=== PATIENT | male | born 1970 | race African-American/Black ===

== ENCOUNTER 2019-08-12 21:10 | Inpatient (IN) | payer OTHER ==
[2019-08-12 21:17] VITALS: BMI 23.6
--- NOTE | 2019-08-12 21:29 | PDOC ---
Rapid Medical Evaluation Chief Complaint: Lightheaded Time Seen by Provider: 08/12/19 21:24 Medical Evaluation: Allergies Allergy/AdvReac Type Severity Reaction Status Date / Time No Known Allergies Allergy Verified 08/12/19 21:13 Vital Signs Temp Pulse Resp BP Pulse Ox 98.8 F 93 H 18 176/95 H 97 08/12/19 21:13 08/12/19 21:13 08/12/19 21:13 08/12/19 21:13 08/12/19 21:13 08/12/19 21:26 I have performed a brief in-person evaluation of this patient. The patient presents with a chief complaint of: h/o HTN present with complains of 3 days h/o dizziness, left arm and upper chest pain worsening today with intermittent SOB. Denies N/V, sweats, LOC. report he feels disoriented. pt uses PCP but report did not have PCP today Pertinent physical exam findings: RRR. lungs CTAB I have ordered the following: CBC, CMP, cardiac profile. CXR, EKG The patient will proceed to the ED for further evaluation. Discharge Disposition - Diagnosis Dizziness - Discharge Dispostion Condition at time of disposition: Stable - Referrals - Patient Instructions - Post Discharge Activity
[2019-08-12 21:43] LABS: BASO % 0.6 % (0-2.0); EOS % 1.2 % (0-4.5); HEMATOCRIT 39.3 % (35.4-49); HEMOGLOBIN 13.1 GM/dL (11.7-16.9); MCH 31.5 pg (25.7-33.7); MCHC 33.4 g/dl (32.0-35.9); MEAN CELL VOLUME 94.5 fl (80-96); MEAN PLT VOLUME 7.3 fl (7.5-11.1); MONO % 8.6 % (3.8-10.2); NEUT % 54.6 % (42.8-82.8); PLATELET COUNT 307 K/MM3 (134-434); RBC 4.16 M/mm3 (4.00-5.60); RDW 14.6 % (11.9-15.9); WHITE BLOOD COUNT 6.6 K/mm3 (4.0-10.0)
[2019-08-12 21:58] LABS: URINE APPEARANCE CLEAR; URINE BILIRUBIN NEGATIVE (NEGATIVE); URINE COLOR YELLOW; URINE GLUCOSE (UA) NEGATIVE (NEGATIVE); URINE KETONE TRACE (NEGATIVE); URINE LEUK ESTERASE NEGATIVE (NEGATIVE); URINE NITRITE NEGATIVE (NEGATIVE); URINE PROTEIN TRACE (NEGATIVE)
[2019-08-12 22:10] LABS: COCAINE, UR NEGATIVE ng/ml (CUTOFF=300); METHADONE, UR NEGATIVE ng/ml (CUTOFF=300); OPIATES, URI NEGATIVE ng/ml (CUTOFF=300); URINE AMPHETAMINES NEGATIVE ng/ml (CUTOFF=500); URINE BARBITURATES NEGATIVE ng/ml (CUTOFF=200); URINE BENZODIAZEPINES NEGATIVE ng/ml (CUTOFF=200)
[2019-08-12 22:11] LABS: PHENCYCLIDINE,URINE POSITIVE ng/ml (CUTOFF=25)
[2019-08-12 22:20] LABS: ALBUMIN 4.1 g/dl (3.4-5.0); ALK PHOS 87 U/L (45-117); ANION GAP 8 MMOL/L (8-16); BILIRUBIN,TOTAL 0.3 mg/dL (0.2-1); BLOOD UREA NITROGEN 12.1 mg/dL (7-18); CALCIUM 9.1 mg/dL (8.5-10.1); CHLORIDE 104 mmol/L (98-107); CO2 29 mmol/L (21-32); CREATININE 1.1 mg/dL (0.55-1.3); GLUCOSE,RANDOM 154 mg/dL (74-106); POTASSIUM 3.4 mmol/L (3.5-5.1); SGOT/AST 14 U/L (15-37); SGPT/ALT 18 U/L (13-61); SODIUM 141 mmol/L (136-145); TOT PROT 7.3 g/dl (6.4-8.2)
--- NOTE | 2019-08-12 22:42 | PDOC ---
History of Present Illness - General Chief Complaint: Lightheaded Stated Complaint: DIZZINESS/LS WEAKNESS Time Seen by Provider: 08/12/19 21:24 History Source: Patient Exam Limitations: No Limitations - History of Present Illness Initial Comments: 08/12/19 22:43 48 yo M with a hx of HTN, TIA (3 years ago), Singletary's Palsy (1992), and HLD presents to the emergency department with chest pain and left face and arm weakness that has been ongoing for 2 hours. Per the patient, the symptoms were sudden in onset while sitting and smoking a cigarette. The patient states he felt disoriented. States the pain was located in the left lateral chest wall, without radiation, sharp pain in sensation, without aggravating and relieving factors. He was able to ambulate into the department. Endorses using marijuana earlier today. Endorses chills, lightheadedness, and SOB. Denies the following: headache, visual disturbance, dizziness, abdominal pain, dysuria, hematuria, diarrhea, and leg pain/swelling. Shx: None Meds: simvastatin and lisinopril tPA Exclusion Checklist 0-3hr - Time Elapsed Date last known well: 08/12/19 Time last known well: 20:40 Elaspsed time: Day(s) and 10 Hour(s) and 10 Minutes - Thrombolytic Therapy Candidate Is the patient eligible for Thrombolytic Therapy?: No - Exclusion Criteria 0-3hr SBP greater than 185 or DBP greater than 110mmHg despite tx: No Recent IC/spinal surgery,head trauma or stroke w/in last 3mo: No Hx of previous IC hemorrhage, IC neoplasm, AVM or aneurysm: No Active internal bleeding: No Blding diathesis(low plt ct, inc PTT,INR>1.7 or use of NOAC): No Symptoms suggest subarachnoid hemorrhage: No CT demonstrates multilobar infarct(>1/3 cerebral hemiphere): No Arterial puncture at noncompressible site in previous 7 days: No Blood glucose concentration less than 50mg/dL (2.7mmol/L): No - Relative Exclusion Criteria 0-3h Life expectancy <1yr/severe co-morbid illness/ACCOUNTANT AUDITOR on admit: No : No Patient/family refused: No Rapid improvement: No Stroke severity too mild: Yes Recent acute DC (w/in previous 3 months): No Seizure at onset with postictal residual neuro impairments: No Major surgery or serious trauma w/in previous 14 days: No Recent GI or hemorrhage (w/in previous 21 days): No - Ineligibility reason(s) Reasons No tPA given: See reason(s) noted above NIH Stroke Scale - Last Known Well Date/Time & Onset Date Last Known Well: 08/13/19 Time Last Known Well: 20:40 - Initial Evaluation Level of consciousness: Alert Ask patient the month and their age: Answers both correctly Ask patient to open & close eyes; make fist and let go: Obeys both correctly Best gaze (horizontal eye movement): Normal Visual field testing: No visual field loss Facial paresis (Show teeth/raise eyebrows/close eyes tight): Complete paralysis of one or both sides (Upper and lower face) (upper and lower left face) Motor Function: Left Arm: Normal Motor Function: Right Arm: Normal (extends arm 90 (or 45) degrees for 10 seconds without drift Motor Function: Left Leg: Normal (extends leg 30 degrees for 5 seconds without drift) Motor Function: Right Leg: Normal (extends leg 30 degrees for 5 seconds without drift) Limb Ataxia: No ataxia Sensory(Use pinprick test arms,legs,trunk,face/side to side): Normal Best language (Describe picture, name items, read sentences): No Aphasia Dysarthria (read several words): Normal articulation Extinction and Inattention: No abnormality - Total Score NIH Stroke Scale Score: 3 Past History - Past Medical History Allergies/Adverse Reactions: Allergies Allergy/AdvReac Type Severity Reaction Status Date / Time No Known Allergies Allergy Verified 08/12/19 21:13 Home Medications: Ambulatory Orders Amlodipine Besylate/Benazepril [Lotrel 5-40 mg Capsule] 1 each PO DAILY Gabapentin 600 mg PO DAILY 08/13/19 Oxycodone HCl/Acetaminophen [Percocet 10-325 mg Tablet] 1 each PO DAILY Simvastatin 40 mg PO HS 08/13/19 COPD: No HTN: Yes Hypercholesterolemia: Yes Other medical history: spinal/pelvic injuries - Psycho Social/Smoking Cessation Hx Smoking History: Current every day smoker Number of Cigarettes Smoked Daily: 20 Information on smoking cessation initiated: No Hx Alcohol Use: No Drug/Substance Use Hx: Yes (pcp) Review of Systems - Review of Systems Able to Perform ROS?: Yes Is the patient limited Dutch proficient: No Constitutional: Yes: Chills. No: Diaphoresis, Fever HEENTM: No: Eye Pain, Ear Pain, Nose Pain, Throat Pain, Mouth Pain Respiratory: Yes: Shortness of Breath. No: Cough, Hemoptysis Cardiac (ROS): Yes: Chest Pain, Lightheadedness. No: Palpitations, Syncope ABD/GI: No: Constipated, Diarrhea, Nausea, Poor Fluid Intake, Rectal Bleeding, Vomiting, Tarry Stools : No: Burning, Dysuria, Flank Pain, Hematuria, Incontinence Musculoskeletal: No: Back Pain Integumentary: No: Bruising, Lesions Neurological: Yes: Weakness. No: Headache Endocrine: No: Excessive Sweating, Unexplained Weight Loss Hematologic/Lymphatic: No: Anemia *Physical Exam - Vital Signs Last Vital Signs Temp Pulse Resp BP Pulse Ox 98.8 F 93 H 18 176/95 H 97 08/12/19 21:13 08/12/19 21:13 08/12/19 21:13 08/12/19 21:13 08/12/19 21:13 - Physical Exam General Appearance: Yes: Nourished, Appropriately Dressed. No: Apparent Distress, Intoxicated, Thin HEENT: positive: EOMI, CORBIN, Normal Voice, Symmetrical, Pharynx Normal, Hearing Grossly Normal. negative: Pale Conjunctivae, Scleral Icterus (R), Scleral Icterus (L), Muffled/Hoarse voice, Pharyngeal Erythema, Tonsillar Exudate, Tonsillar Erythema, Excessive drooling Neck: positive: Trachea midline, Supple. negative: Tender, Lymphadenopathy (R) , Lymphadenopathy (L), Tender lateral, Tender midline Respiratory/Chest: positive: Lungs Clear, Normal Breath Sounds. negative: Chest Tender, Respiratory Distress, Accessory Muscle Use, Crackles, Rales, Rhonchi, Plerual Rub Cardiovascular: positive: Regular Rhythm, Regular Rate, S1, S2. negative: Systolic Murmur Gastrointestinal/Abdominal: positive: Normal Bowel Sounds, Flat, Soft. negative : Tender ED Treatment Course - LABORATORY CBC & Chemistry Diagram: 08/13/19 05:49 08/13/19 05:49 - ADDITIONAL ORDERS Additional order review: Laboratory Results 08/12/19 08/12/19 08/12/19 21:30 21:30 21:30 Sodium 141 Potassium 3.4 L Chloride 104 Carbon Dioxide 29 Anion Gap 8 BUN 12.1 Creatinine 1.1 Est GFR (CKD-EPI)AfAm 90.88 Est GFR (CKD-EPI)NonAf 78.41 Random Glucose 154 H Calcium 9.1 Total Bilirubin 0.3 AST 14 L ALT 18 Alkaline Phosphatase 87 Creatine Kinase 312 H Troponin I < 0.02 Total Protein 7.3 Albumin 4.1 Urine Color Yellow Urine Appearance Clear Urine pH 5.0 Ur Specific [place] 1.029 Urine Protein Trace Urine Glucose (UA) Negative Urine Ketones Trace H Urine Blood Negative Urine Nitrite Negative Urine Bilirubin Negative Urine Urobilinogen 1.0 Ur Leukocyte Esterase Negative Opiates Screen Negative Methadone Screen Negative Barbiturate Screen Negative Phencyclidine Screen Positive A* Ur Amphetamines Screen Negative MDMA (Ecstasy) Screen Negative Benzodiazepines Screen Negative Cocaine Screen Negative U Marijuana (THC) Screen Positive A* 08/12/19 21:30 RBC 4.16 MCV 94.5 MCHC 33.4 RDW 14.6 MPV 7.3 L D Neutrophils % 54.6 D Lymphocytes % 35.0 D Monocytes % 8.6 Eosinophils % 1.2 Basophils % 0.6 Medical Decision Making - Medical Decision Making 48 yo M with a hx of HTN, TIA (3 years ago), Singletary's Palsy (1992), and HLD presents to the emergency department with chest pain and left face and arm weakness that has been ongoing for 2 hours. Initial vitals: Initial Vital Signs Temp Pulse Resp BP Pulse Ox 98.8 F 93 H 18 176/95 H 97 08/12/19 21:13 08/12/19 21:13 08/12/19 21:13 08/12/19 21:13 08/12/19 21:13 Work up: ddx: CVA vs TIA vs singletary's palsy. Laboratory Tests 08/12/19 08/12/19 08/12/19 21:30 21:30 21:30 WBC 6.6 RBC 4.16 Hgb 13.1 Hct 39.3 MCV 94.5 MCH 31.5 MCHC 33.4 RDW 14.6 Plt Count 307 MPV 7.3 L D Absolute Neuts (auto) 3.6 Neutrophils % 54.6 D Lymphocytes % 35.0 D Monocytes % 8.6 Eosinophils % 1.2 Basophils % 0.6 Nucleated RBC % 0 PT with INR INR Sodium 141 Potassium 3.4 L Chloride 104 Carbon Dioxide 29 Anion Gap 8 BUN 12.1 Creatinine 1.1 Est GFR (CKD-EPI)AfAm 90.88 Est GFR (CKD-EPI)NonAf 78.41 Random Glucose 154 H Calcium 9.1 Total Bilirubin 0.3 AST 14 L ALT 18 Alkaline Phosphatase 87 Creatine Kinase 312 H Creatine Kinase Index 0.8 CK-MB (CK-2) 2.5 Troponin I < 0.02 Total Protein 7.3 Albumin 4.1 Triglycerides Cholesterol Total LDL Cholesterol HDL Cholesterol Urine Color Urine Appearance Urine pH Ur Specific [place] Urine Protein Urine Glucose (UA) Urine Ketones Urine Blood Urine Nitrite Urine Bilirubin Urine Urobilinogen Ur Leukocyte Esterase Opiates Screen Negative Methadone Screen Negative Barbiturate Screen Negative Phencyclidine Screen Positive A* Ur Amphetamines Screen Negative MDMA (Ecstasy) Screen Negative Benzodiazepines Screen Negative Cocaine Screen Negative U Marijuana (THC) Screen Positive A* Blood Type Antibody Screen 08/12/19 08/13/19 08/13/19 21:30 00:35 00:35 WBC 6.4 RBC 3.85 L Hgb 12.1 Hct 36.5 MCV 94.8 MCH 31.4 MCHC 33.2 RDW 14.6 Plt Count 283 MPV 7.4 L Absolute Neuts (auto) 3.6 Neutrophils % 55.9 Lymphocytes % 34.7 Monocytes % 7.9 Eosinophils % 1.1 Basophils % 0.4 Nucleated RBC % 0 PT with INR INR Sodium Potassium Chloride Carbon Dioxide Anion Gap BUN Creatinine Est GFR (CKD-EPI)AfAm Est GFR (CKD-EPI)NonAf Random Glucose Calcium Total Bilirubin AST ALT Alkaline Phosphatase Creatine Kinase 263 Creatine Kinase Index 0.8 CK-MB (CK-2) 2.3 Troponin I < 0.02 Total Protein Albumin Triglycerides 74 Cholesterol 142 Total LDL Cholesterol 75 HDL Cholesterol 51 Urine Color Yellow Urine Appearance Clear Urine pH 5.0 Ur Specific [place] 1.029 Urine Protein Trace Urine Glucose (UA) Negative Urine Ketones Trace H Urine Blood Negative Urine Nitrite Negative Urine Bilirubin Negative Urine Urobilinogen 1.0 Ur Leukocyte Esterase Negative Opiates Screen Methadone Screen Barbiturate Screen Phencyclidine Screen Ur Amphetamines Screen MDMA (Ecstasy) Screen Benzodiazepines Screen Cocaine Screen U Marijuana (THC) Screen Blood Type Antibody Screen 08/13/19 08/13/19 00:35 00:35 WBC RBC Hgb Hct MCV MCH MCHC RDW Plt Count MPV Absolute Neuts (auto) Neutrophils % Lymphocytes % Monocytes % Eosinophils % Basophils % Nucleated RBC % PT with INR 12.70 INR 1.08 Sodium Potassium Chloride Carbon Dioxide Anion Gap BUN Creatinine Est GFR (CKD-EPI)AfAm Est GFR (CKD-EPI)NonAf Random Glucose Calcium Total Bilirubin AST ALT Alkaline Phosphatase Creatine Kinase Creatine Kinase Index CK-MB (CK-2) Troponin I Total Protein Albumin Triglycerides Cholesterol Total LDL Cholesterol HDL Cholesterol Urine Color Urine Appearance Urine pH Ur Specific [place] Urine Protein Urine Glucose (UA) Urine Ketones Urine Blood Urine Nitrite Urine Bilirubin Urine Urobilinogen Ur Leukocyte Esterase Opiates Screen Methadone Screen Barbiturate Screen Phencyclidine Screen Ur Amphetamines Screen MDMA (Ecstasy) Screen Benzodiazepines Screen Cocaine Screen U Marijuana (THC) Screen Blood Type A POSITIVE Antibody Screen Negative 08/13/19 00:[address] Smiley. States tpa should not be given due to the mild symptoms the patient currently has. advises aspirin 324 mg. Advises mri brain and carotid studies. Needs stroke work up admission. Head CT was negative for acute intracranial hemorrhage. labs within normal limits. Discharge - Discharge Information Problems reviewed: Yes Clinical Impression/Diagnosis: Cerebral vascular accident Condition: Stable - Admission Yes - Follow up/Referral - Patient Discharge Instructions - Post Discharge Activity
--- NOTE | 2019-08-12 23:00 | PDOC ---
Attending Attestation - Resident Resident Name: Wali Alvarez - ED Attending Attestation I have performed the following: I have examined & evaluated the patient, The case was reviewed & discussed with the resident, I agree w/resident's findings & plan - HPI HPI: 08/13/19 03:00 see resident hpi 08/13/19 03:00 - Physicial Exam PE: 08/13/19 03:00 agree with resident exam - Medical Decision Making 08/13/19 03:00 48-year-old male with approximately 2 hours of left-sided facial tingling with intermittent chest pains and tingling down the left arm NIH scale is 3 Code riley called, case discussed with neurology Patient will be disqualified for thrombolytics due to mild symptomotology localized to face, likely consistent with Singletary's palsy He will be admitted for further evaluation
[2019-08-12] MEDS ORDERED: SODIUM CHLORIDE 1,000 ML IV SCH (23:15)
[2019-08-13] MEDS ORDERED: ASPIRIN 81 MG CHEWABLE TABLETS PO ONE (00:30)
[2019-08-13] MEDS ORDERED: ASPIRIN 81 MG CHEWABLE TABLETS ONE (00:36)
--- NOTE | 2019-08-13 00:53 | HP ---
CHIEF COMPLAINT: Chest Pain PCP: Dr. Victor M Barrera HISTORY OF PRESENT ILLNESS: Mr. Norman is a 48 y/o M with a pmhx of HTN, TIA ( 3 yrs ago), bells palsy (1992), and polysubstance abuse (PCP and marijuana) who presents with acute onset left sided chest pain, arm pain, and new L sided facial weakness. The patient reports he had parked his car around 8:40 pm and got out when he had sudden onset left sided chest pain also associated with arm pain. He states he also noted the vision in his left eye got blurry and he became disoriented, he could not clarify what he meant by disoriented and stated he just didn't feel right. The patient stated the chest pain was sharp without radiation and nothing made the pain better or worse. The patient stated he used PCP the day before yesterday. The patient denies chills, SOB, headache, dizziness, abdominal pain, dysuria, hematuria, diarrhea, or leg pain/ swelling. The patient endorses LLE numbness which he states began earlier today and is new. ER course was notable for: (1) EKG with NSR (HR 89) and non-specific Twave abnormality, QTc 396 (2)Troponin negative x1 (3) ASA 325 given x1, Dr. Smiley consulted> [facility] r/o stroke, patient not candidate for TPA at this time Recent Travel: denies PAST MEDICAL HISTORY: HTN, TIA (3 yrs ago), bells palsy (1992), and polysubstance abuse (PCP and marijuana) PAST SURGICAL HISTORY: 6 years ago had spine and pelvis surgery after he jumped out of a 6th floor window. Also had a nerve stimulator placed for pain FAMILY HISTORY: mom- stroke Social History: Smokin/2 ppd for 35 years Alcohol: denies Drugs: marijuana daily, PCP (last used ~08/10) Allergies No Known Allergies Allergy (Verified 08/12/19 21:13) HOME MEDICATIONS: REVIEW OF SYSTEMS CONSTITUTIONAL: Absent: fever, chills, diaphoresis, generalized weakness, malaise, loss of appetite, weight change HEENT: Absent: rhinorrhea, nasal congestion, throat pain, throat swelling, difficulty swallowing, mouth swelling, ear pain, eye pain, visual changes CARDIOVASCULAR: chest pain, Absent: syncope, palpitations, irregular heart rate, lightheadedness, peripheral edema RESPIRATORY: Absent: cough, shortness of breath, dyspnea with exertion, orthopnea, wheezing, stridor, hemoptysis GASTROINTESTINAL: Absent: abdominal pain, abdominal distension, nausea, vomiting, diarrhea, constipation, melena, hematochezia GENITOURINARY: Absent: dysuria, frequency, urgency, hesitancy, hematuria, flank pain, genital pain MUSCULOSKELETAL: Absent: myalgia, arthralgia, joint swelling, back pain, neck pain SKIN: Absent: rash, itching, pallor HEMATOLOGIC/IMMUNOLOGIC: Absent: easy bleeding, easy bruising, lymphadenopathy, frequent infections ENDOCRINE: Absent: unexplained weight gain, unexplained weight loss, heat intolerance, cold intolerance NEUROLOGIC: LLE numbness Absent: headache, dizziness, unsteady gait, seizure, mental status changes, bladder or bowel incontinence PSYCHIATRIC: Absent: anxiety, depression, suicidal or homicidal ideation, hallucinations. PHYSICAL EXAMINATION Vital Signs - 24 hr 08/12/19 21:13 Temperature 98.8 F Pulse Rate 93 H Respiratory 18 Rate Blood Pressure 176/95 H O2 Sat by Pulse 97 Oximetry (%) GENERAL: sleepy, fully oriented, in no acute distress. HEAD: Normal with no signs of trauma. EYES: Pupils equal, round and reactive to light, extraocular movements intact, sclera anicteric, conjunctiva clear. No lid lag. EARS, NOSE, THROAT: Ears normal, nares patent, oropharynx clear without exudates. Moist mucous membranes. NECK: Normal range of motion, supple without lymphadenopathy, JVD, or masses. LUNGS: Breath sounds equal, clear to auscultation bilaterally. No wheezes, and no crackles. No accessory muscle use. HEART: Regular rate and rhythm, normal S1 and S2 without murmur, rub or gallop. ABDOMEN: Soft, nontender, not distended, normoactive bowel sounds, no guarding, no rebound, no masses. MUSCULOSKELETAL: Normal range of motion at all joints. No bony deformities or tenderness. No CVA tenderness. UPPER EXTREMITIES: 2+ pulses, warm, well-perfused. No cyanosis. No clubbing. No peripheral edema. LOWER EXTREMITIES: 2+ pulses, warm, well-perfused. No calf tenderness. No peripheral edema. NEUROLOGICAL: Cranial nerves II-XII however there was weakness in the distribution of CN VII on the L side compared to the R. Also there was decreased sensation in the distribution of CN V on the L side of the face. Weakness of the RLE compared to LLE (4/5 vs 5/5, patient states this is chronic since his spine injury). Decreased sensation in the LUE compared to RUE. Decreased sensation in the L thigh and foot compared to R, normal sensation on L pabon compared to R. 1+ biceps, brachioradialis, and patellar reflexes bilaterally. Normal speech. Gait not observed. SKIN: Warm, dry, normal turgor, no rashes or lesions noted, normal capillary refill. Laboratory Results - last 24 hr 08/12/19 08/12/19 08/12/19 21:30 21:30 21:30 WBC 6.6 RBC 4.16 Hgb 13.1 Hct 39.3 MCV 94.5 MCH 31.5 MCHC 33.4 RDW 14.6 Plt Count 307 MPV 7.3 L D Absolute Neuts (auto) 3.6 Neutrophils % 54.6 D Lymphocytes % 35.0 D Monocytes % 8.6 Eosinophils % 1.2 Basophils % 0.6 Nucleated RBC % 0 Sodium 141 Potassium 3.4 L Chloride 104 Carbon Dioxide 29 Anion Gap 8 BUN 12.1 Creatinine 1.1 Est GFR (CKD-EPI)AfAm 90.88 Est GFR (CKD-EPI)NonAf 78.41 Random Glucose 154 H Calcium 9.1 Total Bilirubin 0.3 AST 14 L ALT 18 Alkaline Phosphatase 87 Creatine Kinase 312 H Creatine Kinase Index 0.8 CK-MB (CK-2) 2.5 Troponin I < 0.02 Total Protein 7.3 Albumin 4.1 Urine Color Urine Appearance Urine pH Ur Specific [place] Urine Protein Urine Glucose (UA) Urine Ketones Urine Blood Urine Nitrite Urine Bilirubin Urine Urobilinogen Ur Leukocyte Esterase Opiates Screen Negative Methadone Screen Negative Barbiturate Screen Negative Phencyclidine Screen Positive A* Ur Amphetamines Screen Negative MDMA (Ecstasy) Screen Negative Benzodiazepines Screen Negative Cocaine Screen Negative U Marijuana (THC) Screen Positive A* 08/12/19 21:30 WBC RBC Hgb Hct MCV MCH MCHC RDW Plt Count MPV Absolute Neuts (auto) Neutrophils % Lymphocytes % Monocytes % Eosinophils % Basophils % Nucleated RBC % Sodium Potassium Chloride Carbon Dioxide Anion Gap BUN Creatinine Est GFR (CKD-EPI)AfAm Est GFR (CKD-EPI)NonAf Random Glucose Calcium Total Bilirubin AST ALT Alkaline Phosphatase Creatine Kinase Creatine Kinase Index CK-MB (CK-2) Troponin I Total Protein Albumin Urine Color Yellow Urine Appearance Clear Urine pH 5.0 Ur Specific [place] 1.029 Urine Protein Trace Urine Glucose (UA) Negative Urine Ketones Trace H Urine Blood Negative Urine Nitrite Negative Urine Bilirubin Negative Urine Urobilinogen 1.0 Ur Leukocyte Esterase Negative Opiates Screen Methadone Screen Barbiturate Screen Phencyclidine Screen Ur Amphetamines Screen MDMA (Ecstasy) Screen Benzodiazepines Screen Cocaine Screen U Marijuana (THC) Screen ASSESSMENT/PLAN: Mr. Norman is a 48 y/o M with a pmhx of HTN, TIA (3 yrs ago), bells palsy ( 1992), and polysubstance abuse (PCP and marijuana) who presents with acute onset left sided chest pain, arm pain, and new L sided facial weakness being admitted to r/o CVA and ACS. #New onset facial weakness- patient is hypertensive to 176/95, with new onset facial weakness and numbness on physical exam. Patient also reporting new LLE numbness for 1 day. - Admit to tele - Lipid panel - CT heat w/o contrast - Neuro consulted, Dr. Smiley, appreciate recommendations> patient not a candidate for TPA at this time ASA 325 administered in ED - obtain MRI brain without contrast - carotid duplex bilaterally - High-dose statin - Gentle IV fluid hydration, NS @ 75cc/h - speech swallow eval - neuro checks q4hr - bedrest/ fall precautions - NPO until patient passes bedside swallow # Chest pain- EKG with sinus rhythm and nonspecific twave changes in setting of HTN, and new onset facial weakness - echo - resume lisinopril 40 (home med) - trend troponins - ASA 81 daily #HTN - contine lisinopril 40 daily FEN: - IVNS 75cc/hr -replete prn - NPO until bedside dysphagia study PPx: - dvt: heparin 5000 TID Dispo: admit to tele for overnight observation and r/o stroke. Visit type - Emergency Visit Emergency Visit: Yes ED Registration Date: 08/13/19 Care time: The patient presented to the Emergency Department on the above date and was hospitalized for further evaluation of their emergent condition. - New Patient This patient is new to me today: Yes Date on this admission: 08/13/19 - Critical Care Critical Care patient: No ATTENDING PHYSICIAN STATEMENT I saw and evaluated the patient. I reviewed the resident's note and discussed the case with the resident. I agree with the resident's findings and plan as documented. SUBJECTIVE: OBJECTIVE: ASSESSMENT AND PLAN:
[2019-08-13 01:04] LABS: BASO % 0.4 % (0-2.0); EOS % 1.1 % (0-4.5); HEMATOCRIT 36.5 % (35.4-49); HEMOGLOBIN 12.1 GM/dL (11.7-16.9); LYMPH % 34.7 % (8-40); MCH 31.4 pg (25.7-33.7); MCHC 33.2 g/dl (32.0-35.9); MEAN CELL VOLUME 94.8 fl (80-96); MEAN PLT VOLUME 7.4 fl (7.5-11.1); MONO % 7.9 % (3.8-10.2); NEUT % 55.9 % (42.8-82.8); PLATELET COUNT 283 K/MM3 (134-434); RBC 3.85 M/mm3 (4.00-5.60); RDW 14.6 % (11.9-15.9); WHITE BLOOD COUNT 6.4 K/mm3 (4.0-10.0)
[2019-08-13 01:21] LABS: INR 1.08 (0.83-1.09); PROTHROMBIN TIME (PATIENT) 12.7 SEC (9.7-13.0)
[2019-08-13 01:32] LABS: CHOLESTEROL 142 mg/dL (50-200); HDL CHOLESTEROL 51 mg/dL (40-60); LDL CHOLESTEROL (ONLY SJRH) 75 mg/dL (5-100); TRIGLYCERIDES 74 mg/dL (0-150)
[2019-08-13] MEDS ORDERED: SODIUM CHLORIDE 1,000 ML IV SCH (01:45)
--- NOTE | 2019-08-13 02:00 | PN ---
Teaching Attending Note Name of Resident: Lindsay Graham ATTENDING PHYSICIAN STATEMENT I saw and evaluated the patient. I reviewed the resident's note and discussed the case with the resident. I agree with the resident's findings and plan as documented. 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 Per the patient, the symptoms were sudden in onset while sitting and smoking a cigarette. The patient states he felt disoriented. Pt not very cooperative with interview and physical exam as he kept on falling asleep. OBJECTIVE: Last Vital Signs Temp Pulse Resp BP Pulse Ox 98.8 F 93 H 18 176/95 H 97 08/12/19 21:13 08/12/19 21:13 08/12/19 21:13 08/12/19 21:13 08/12/19 21:13 GENERAL: Well developed, well nourished. Drowsy HEENT: Normocephalic, atraumatic. PERRLA, EOMI. No conjunctival pallor. Sclera are non- icteric. Moist mucous membranes. Oropharynx is clear. NECK: Supple. Full ROM. No JVD. Carotid pulses 2+ and symmetric, without bruits. No thyromegaly. No lymphadenopathy. CARDIOVASCULAR: Regular rate and rhythm. No murmurs, rubs, or gallops. Distal pulses are 2+ and symmetric. PULMONARY: No evidence of respiratory distress. Lungs clear to auscultation bilaterally. No wheezing, rales or rhonchi. ABDOMINAL: Soft. Non-tender. Non-distended. No rebound or guarding. No organomegaly. Normoactive bowel sounds. MUSCULOSKELETAL Normal range of motion at all joints. No bony deformities or tenderness. No CVA tenderness. EXTREMITIES: No cyanosis. No clubbing. No edema. No calf tenderness. SKIN: Warm and dry. Normal capillary refill. No rashes. No jaundice. NEUROLOGICAL: left facial droop PSYCHIATRIC: uncooperative Abnormal Lab Results 08/12/19 08/12/19 08/12/19 21:30 21:30 21:30 RBC MPV 7.3 L D Potassium 3.4 L Random Glucose 154 H AST 14 L Creatine Kinase 312 H Urine Ketones Phencyclidine Screen Positive A* U Marijuana (THC) Screen Positive A* 08/12/19 08/13/19 21:30 00:35 RBC 3.85 L MPV 7.4 L Potassium Random Glucose AST Creatine Kinase Urine Ketones Trace H Phencyclidine Screen U Marijuana (THC) Screen Imaging reviewed ASSESSMENT AND PLAN: 48-year-old male with PCP And marijuana intoxication, sob, alleged chest pain, left worsening facial weakness acute on chronic.Symptoms may be related to substance intoxication however showed rule out CVA as well as ACS. Admit to telemetry [facility] Neuro checks every 4 hours Bedrest and fall precautions Brain MRI Carotid duplex bilaterally Transthoracic echo Trend troponin Aspirin High-dose statin Gentle IV fluid hydration Speech and swallow evaluation Neurology evaluation Supplement potassium Advised patient not to use PCP and marijuana Lisinopril for uncontrolled hypertension DVT prophylaxis with heparin subcu
[2019-08-13] MEDS ORDERED: LISINOPRIL 20 MG TABLET (FP) PO SCH ×2 (02:01→10:00)
[2019-08-13] MEDS ORDERED: HEPARIN NA (PORCINE) 5,000 UNITS/ML 1ML VIAL SQ SCH (06:00)
[2019-08-13 06:05] LABS: BASO % 1.5 % (0-2.0); EOS % 1.7 % (0-4.5); HEMOGLOBIN 11.9 GM/dL (11.7-16.9); LYMPH % 49.4 % (8-40); MCH 32.1 pg (25.7-33.7); MEAN CELL VOLUME 94.4 fl (80-96); MEAN PLT VOLUME 7.2 fl (7.5-11.1); NEUT % 38.4 % (42.8-82.8); PLATELET COUNT 268 K/MM3 (134-434); RDW 14.7 % (11.9-15.9); WHITE BLOOD COUNT 6.5 K/mm3 (4.0-10.0)
[2019-08-13 06:12] VITALS: TEMP 98.5
[2019-08-13] MEDS ORDERED: HEPARIN NA (PORCINE) 5,000 UNITS/ML 1ML VIAL ONE (06:34)
[2019-08-13 06:40] LABS: ALBUMIN 3.2 g/dl (3.4-5.0); BILIRUBIN,TOTAL 0.2 mg/dL (0.2-1); BLOOD UREA NITROGEN 10.9 mg/dL (7-18); CALCIUM 8.2 mg/dL (8.5-10.1); CREATININE 0.8 mg/dL (0.55-1.3); MAGNESIUM 1.9 mg/dL (1.8-2.4); POTASSIUM 3.4 mmol/L (3.5-5.1); TOT PROT 5.9 g/dl (6.4-8.2)
[2019-08-13] MEDS ORDERED: POTASSIUM CHLORIDE ORAL LIQUID 20 MEQ/15 ML PO ONE (08:15)
--- NOTE | 2019-08-13 09:20 | CONSULT ---
Consult - text type - Consultation Consultation Note: Neurology CHIEF COMPLAINT: Chest Pain PCP: Dr. Victor M Barrera HISTORY OF PRESENT ILLNESS: 48 y/o M with a pmhx of HTN, TIA (3 yrs ago), bells palsy (1992), and polysubstance abuse (PCP and marijuana) who presents with acute onset left sided chest pain, arm pain, and new L sided facial weakness. The patient reported he had parked his car around 8:40 pm and got out when he had sudden onset left sided chest pain also associated with arm pain. He stated he also noted the vision in his left eye got blurry and he became disoriented, he could not clarify what he meant by disoriented and stated he just didn't feel right. The patient stated the chest pain was sharp without radiation and nothing made the pain better or worse. The patient stated he used PCP the day before yesterday. The patient denies chills, SOB, headache, dizziness, abdominal pain, dysuria, hematuria, diarrhea, or leg pain/ swelling. The patient endorses LLE numbness which he states began earlier today and is new. I was contacted by the emergency department overnight as a potential code riley, noncontrast head CT completed and did not show any acute changes. Advised further imaging and patient reports this morning that he cannot have MRI of the brain and therefore recommended repeat noncontrast head CT. Spoke to hospitalist contacted me this morning and discussed the case. Patient denies any weakness and adamant that he will be leaving. IF CT head positive for CVA, tthem would certainly advise having carotid Dopplers and echo and complete stroke workup. If CT of the head negative then can likely defer further workup to outpatient. Recent Travel: denies PAST MEDICAL HISTORY: HTN, TIA (3 yrs ago), bells palsy (1992), and polysubstance abuse (PCP and marijuana) PAST SURGICAL HISTORY: 6 years ago had spine and pelvis surgery after he jumped out of a 6th floor window. Also had a nerve stimulator placed for pain FAMILY HISTORY: mom- stroke Social History: Smokin/2 ppd for 35 years Alcohol: denies Drugs: marijuana daily, PCP (last used ~08/10) Allergies No Known Allergies Allergy (Verified 08/12/19 21:13) Active Medications Aspirin (Ecotrin -) 81 mg PO DAILY [facility]BE Atorvastatin Calcium (Lipitor -) 20 mg PO HS BEBE Heparin Sodium (Porcine) (Heparin -) 5,000 unit SQ TID [facility] Last Admin: 08/13/19 06:39 Dose: 5,000 unit Lisinopril (Prinivil) 40 mg PO DAILY [facility] Nicotine (Nicoderm Patch -) 7 mg TD DAILY [facility] REVIEW OF SYSTEMS CONSTITUTIONAL: Absent: fever, chills, diaphoresis, generalized weakness, malaise, loss of appetite, weight change HEENT: Absent: rhinorrhea, nasal congestion, throat pain, throat swelling, difficulty swallowing, mouth swelling, ear pain, eye pain, visual changes CARDIOVASCULAR: chest pain, Absent: syncope, palpitations, irregular heart rate, lightheadedness, peripheral edema RESPIRATORY: Absent: cough, shortness of breath, dyspnea with exertion, orthopnea, wheezing, stridor, hemoptysis GASTROINTESTINAL: Absent: abdominal pain, abdominal distension, nausea, vomiting, diarrhea, constipation, melena, hematochezia GENITOURINARY: Absent: dysuria, frequency, urgency, hesitancy, hematuria, flank pain, genital pain MUSCULOSKELETAL: Absent: myalgia, arthralgia, joint swelling, back pain, neck pain SKIN: Absent: rash, itching, pallor HEMATOLOGIC/IMMUNOLOGIC: Absent: easy bleeding, easy bruising, lymphadenopathy, frequent infections ENDOCRINE: Absent: unexplained weight gain, unexplained weight loss, heat intolerance, cold intolerance NEUROLOGIC: LLE numbness Absent: headache, dizziness, unsteady gait, seizure, mental status changes, bladder or bowel incontinence PSYCHIATRIC: Absent: anxiety, depression, suicidal or homicidal ideation, hallucinations. PHYSICAL EXAMINATION Vital Signs - 24 hr 08/12/19 21:13 Temperature 98.8 F Pulse Rate 93 H Respiratory 18 Rate Blood Pressure 176/95 H O2 Sat by Pulse 97 Oximetry (%) GENERAL: sleepy, fully oriented, in no acute distress. HEAD: Normal with no signs of trauma. EYES: Pupils equal, round and reactive to light, extraocular movements intact, sclera anicteric, conjunctiva clear. No lid lag. EARS, NOSE, THROAT: Ears normal, nares patent, oropharynx clear without exudates. Moist mucous membranes. NECK: Normal range of motion, supple without lymphadenopathy, JVD, or masses. LUNGS: Breath sounds equal, clear to auscultation bilaterally. No wheezes, and no crackles. No accessory muscle use. HEART: Regular rate and rhythm, normal S1 and S2 without murmur, rub or gallop. ABDOMEN: Soft, nontender, not distended, normoactive bowel sounds, no guarding, no rebound, no masses. MUSCULOSKELETAL: Normal range of motion at all joints. No bony deformities or tenderness. No CVA tenderness. UPPER EXTREMITIES: 2+ pulses, warm, well-perfused. No cyanosis. No clubbing. No peripheral edema. LOWER EXTREMITIES: 2+ pulses, warm, well-perfused. No calf tenderness. No peripheral edema. NEUROLOGICAL: Cranial nerves II-XII but with mild left facial droop. strength grossly intact on confrontation testing, minimal left lower extremity weaknesspatient reports possibly due to prior spinal injury. sensory intact bilaterally. 1+ biceps, brachioradialis, and patellar reflexes bilaterally. Normal speech. SKIN: Warm, dry, normal turgor, no rashes or lesions noted, normal capillary refill. Laboratory Results - last 24 hr 08/12/19 08/12/19 08/12/19 21:30 21:30 21:30 WBC 6.6 RBC 4.16 Hgb 13.1 Hct 39.3 MCV 94.5 MCH 31.5 MCHC 33.4 RDW 14.6 Plt Count 307 MPV 7.3 L D Absolute Neuts (auto) 3.6 Neutrophils % 54.6 D Lymphocytes % 35.0 D Monocytes % 8.6 Eosinophils % 1.2 Basophils % 0.6 Nucleated RBC % 0 Sodium 141 Potassium 3.4 L Chloride 104 Carbon Dioxide 29 Anion Gap 8 BUN 12.1 Creatinine 1.1 Est GFR (CKD-EPI)AfAm 90.88 Est GFR (CKD-EPI)NonAf 78.41 Random Glucose 154 H Calcium 9.1 Total Bilirubin 0.3 AST 14 L ALT 18 Alkaline Phosphatase 87 Creatine Kinase 312 H Creatine Kinase Index 0.8 CK-MB (CK-2) 2.5 Troponin I < 0.02 Total Protein 7.3 Albumin 4.1 Urine Color Urine Appearance Urine pH Ur Specific [place] Urine Protein Urine Glucose (UA) Urine Ketones Urine Blood Urine Nitrite Urine Bilirubin Urine Urobilinogen Ur Leukocyte Esterase Opiates Screen Negative Methadone Screen Negative Barbiturate Screen Negative Phencyclidine Screen Positive A* Ur Amphetamines Screen Negative MDMA (Ecstasy) Screen Negative Benzodiazepines Screen Negative Cocaine Screen Negative U Marijuana (THC) Screen Positive A* 08/12/19 21:30 WBC RBC Hgb Hct MCV MCH MCHC RDW Plt Count MPV Absolute Neuts (auto) Neutrophils % Lymphocytes % Monocytes % Eosinophils % Basophils % Nucleated RBC % Sodium Potassium Chloride Carbon Dioxide Anion Gap BUN Creatinine Est GFR (CKD-EPI)AfAm Est GFR (CKD-EPI)NonAf Random Glucose Calcium Total Bilirubin AST ALT Alkaline Phosphatase Creatine Kinase Creatine Kinase Index CK-MB (CK-2) Troponin I Total Protein Albumin Urine Color Yellow Urine Appearance Clear Urine pH 5.0 Ur Specific [place] 1.029 Urine Protein Trace Urine Glucose (UA) Negative Urine Ketones Trace H Urine Blood Negative Urine Nitrite Negative Urine Bilirubin Negative Urine Urobilinogen 1.0 Ur Leukocyte Esterase Negative Opiates Screen Methadone Screen Barbiturate Screen Phencyclidine Screen Ur Amphetamines Screen MDMA (Ecstasy) Screen Benzodiazepines Screen Cocaine Screen U Marijuana (THC) Screen ASSESSMENT/PLAN: 48 y/o M with a pmhx of HTN, TIA (3 yrs ago), bells palsy (1992), and polysubstance abuse (PCP and marijuana) who presents with acute onset left sided chest pain, arm pain, and new L sided facial weakness. The patient reported he had parked his car around 8:40 pm and got out when he had sudden onset left sided chest pain also associated with arm pain. He stated he also noted the vision in his left eye got blurry and he became disoriented, he could not clarify what he meant by disoriented and stated he just didn't feel right. The patient stated the chest pain was sharp without radiation and nothing made the pain better or worse. The patient stated he used PCP the day before yesterday. The patient denies chills, SOB, headache, dizziness, abdominal pain, dysuria, hematuria, diarrhea, or leg pain/ swelling. The patient endorses LLE numbness which he states began earlier today and is new. I was contacted by the emergency department overnight as a potential code riley, noncontrast head CT completed and did not show any acute changes. Advised further imaging and patient reports this morning that he cannot have MRI of the brain and therefore recommended repeat noncontrast head CT. Spoke to hospitalist contacted me this morning and discussed the case. Patient denies any weakness and adamant that he will be leaving. IF CT head positive for CVA, tthem would certainly advise having carotid Dopplers and echo and complete stroke workup. If CT of the head negative then can likely defer further workup to outpatient. Monitor blood pressure, can allow up to 160/90 for now. ASA 81mg daily for now. Continue statin. Telemetry monitoring.
[2019-08-13] MEDS ORDERED: POTASSIUM CHLORIDE ORAL LIQUID 20 MEQ/15 ML ONE (09:35)
--- NOTE | 2019-08-13 09:56 | DS ---
Physical Exam: SUBJECTIVE: Patient seen and examined OBJECTIVE: Vital Signs Period Temp Pulse Resp BP Sys/Borjas Pulse Ox Last 24 Hr 98.5 F-98.8 F 62-93 16-18 130-176/64-95 95-98 PHYSICAL EXAM GENERAL: The patient is awake, alert, and fully oriented, in no acute distress. HEAD: Normal with no signs of trauma. EYES: PERRL, extraocular movements intact, sclera anicteric, conjunctiva clear. ENT: Ears normal, nares patent, oropharynx clear without exudates, moist mucous membranes. NECK: Trachea midline, full range of motion, supple. LUNGS: Breath sounds equal, clear to auscultation bilaterally, no wheezes, no crackles, no accessory muscle use. HEART: Regular rate and rhythm, S1, S2 without murmur, rub or gallop. ABDOMEN: Soft, nontender, nondistended, normoactive bowel sounds, no guarding, no rebound, no hepatosplenomegaly, no masses. EXTREMITIES: 2+ pulses, warm, well-perfused, no edema. NEUROLOGICAL: Cranial nerves II through XII grossly intact. Normal speech, gait not observed. PSYCH: Normal mood, normal affect. SKIN: Warm, dry, normal turgor, no rashes or lesions noted. LABS Laboratory Results - last 24 hr 08/12/19 08/12/19 08/12/19 21:30 21:30 21:30 WBC 6.6 RBC 4.16 Hgb 13.1 Hct 39.3 MCV 94.5 MCH 31.5 MCHC 33.4 RDW 14.6 Plt Count 307 MPV 7.3 L D Absolute Neuts (auto) 3.6 Neutrophils % 54.6 D Lymphocytes % 35.0 D Monocytes % 8.6 Eosinophils % 1.2 Basophils % 0.6 Nucleated RBC % 0 PT with INR INR Sodium 141 Potassium 3.4 L Chloride 104 Carbon Dioxide 29 Anion Gap 8 BUN 12.1 Creatinine 1.1 Est GFR (CKD-EPI)AfAm 90.88 Est GFR (CKD-EPI)NonAf 78.41 POC Glucometer Random Glucose 154 H Hemoglobin A1c % Calcium 9.1 Phosphorus Magnesium Total Bilirubin 0.3 AST 14 L ALT 18 Alkaline Phosphatase 87 Creatine Kinase 312 H Creatine Kinase Index 0.8 CK-MB (CK-2) 2.5 Troponin I < 0.02 Total Protein 7.3 Albumin 4.1 Triglycerides Cholesterol Total LDL Cholesterol HDL Cholesterol Urine Color Urine Appearance Urine pH Ur Specific Mckinney Urine Protein Urine Glucose (UA) Urine Ketones Urine Blood Urine Nitrite Urine Bilirubin Urine Urobilinogen Ur Leukocyte Esterase Opiates Screen Negative Methadone Screen Negative Barbiturate Screen Negative Phencyclidine Screen Positive A* Ur Amphetamines Screen Negative MDMA (Ecstasy) Screen Negative Benzodiazepines Screen Negative Cocaine Screen Negative U Marijuana (THC) Screen Positive A* Blood Type Antibody Screen 08/12/19 08/13/19 08/13/19 21:30 00:35 00:35 WBC 6.4 RBC 3.85 L Hgb 12.1 Hct 36.5 MCV 94.8 MCH 31.4 MCHC 33.2 RDW 14.6 Plt Count 283 MPV 7.4 L Absolute Neuts (auto) 3.6 Neutrophils % 55.9 Lymphocytes % 34.7 Monocytes % 7.9 Eosinophils % 1.1 Basophils % 0.4 Nucleated RBC % 0 PT with INR INR Sodium Potassium Chloride Carbon Dioxide Anion Gap BUN Creatinine Est GFR (CKD-EPI)AfAm Est GFR (CKD-EPI)NonAf POC Glucometer Random Glucose Hemoglobin A1c % Calcium Phosphorus Magnesium Total Bilirubin AST ALT Alkaline Phosphatase Creatine Kinase 263 Creatine Kinase Index 0.8 CK-MB (CK-2) 2.3 Troponin I < 0.02 Total Protein Albumin Triglycerides 74 Cholesterol 142 Total LDL Cholesterol 75 HDL Cholesterol 51 Urine Color Yellow Urine Appearance Clear Urine pH 5.0 Ur Specific Mckinney 1.029 Urine Protein Trace Urine Glucose (UA) Negative Urine Ketones Trace H Urine Blood Negative Urine Nitrite Negative Urine Bilirubin Negative Urine Urobilinogen 1.0 Ur Leukocyte Esterase Negative Opiates Screen Methadone Screen Barbiturate Screen Phencyclidine Screen Ur Amphetamines Screen MDMA (Ecstasy) Screen Benzodiazepines Screen Cocaine Screen U Marijuana (THC) Screen Blood Type Antibody Screen 08/13/19 08/13/19 08/13/19 00:35 00:35 05:49 WBC RBC Hgb Hct MCV MCH MCHC RDW Plt Count MPV Absolute Neuts (auto) Neutrophils % Lymphocytes % Monocytes % Eosinophils % Basophils % Nucleated RBC % PT with INR 12.70 INR 1.08 Sodium Potassium Chloride Carbon Dioxide Anion Gap BUN Creatinine Est GFR (CKD-EPI)AfAm Est GFR (CKD-EPI)NonAf POC Glucometer Random Glucose Hemoglobin A1c % Calcium Phosphorus Magnesium Total Bilirubin AST ALT Alkaline Phosphatase Creatine Kinase Creatine Kinase Index CK-MB (CK-2) Troponin I < 0.02 Total Protein Albumin Triglycerides Cholesterol Total LDL Cholesterol HDL Cholesterol Urine Color Urine Appearance Urine pH Ur Specific Mck[place] Urine Protein Urine Glucose (UA) Urine Ketones Urine Blood Urine Nitrite Urine Bilirubin Urine Urobilinogen Ur Leukocyte Esterase Opiates Screen Methadone Screen Barbiturate Screen Phencyclidine Screen Ur Amphetamines Screen MDMA (Ecstasy) Screen Benzodiazepines Screen Cocaine Screen U Marijuana (THC) Screen Blood Type A POSITIVE Antibody Screen Negative 08/13/19 08/13/19 08/13/19 05:49 05:49 05:49 WBC RBC Hgb Hct MCV MCH MCHC RDW Plt Count MPV Absolute Neuts (auto) Neutrophils % Lymphocytes % Monocytes % Eosinophils % Basophils % Nucleated RBC % PT with INR INR Sodium 146 H Potassium 3.4 L Chloride 111 H Carbon Dioxide 29 Anion Gap 6 L BUN 10.9 Creatinine 0.8 Est GFR (CKD-EPI)AfAm 121.57 Est GFR (CKD-EPI)NonAf 104.89 POC Glucometer Random Glucose 91 Hemoglobin A1c % 5.8 Calcium 8.2 L Phosphorus 3.0 Magnesium 1.9 Total Bilirubin 0.2 AST 11 L ALT 15 Alkaline Phosphatase 70 Creatine Kinase Creatine Kinase Index CK-MB (CK-2) Troponin I Total Protein 5.9 L Albumin 3.2 L Triglycerides Cholesterol Total LDL Cholesterol HDL Cholesterol Urine Color Urine Appearance Urine pH Ur Specific Mck[place] Urine Protein Urine Glucose (UA) Urine Ketones Urine Blood Urine Nitrite Urine Bilirubin Urine Urobilinogen Ur Leukocyte Esterase Opiates Screen Methadone Screen Barbiturate Screen Phencyclidine Screen Ur Amphetamines Screen MDMA (Ecstasy) Screen Benzodiazepines Screen Cocaine Screen U Marijuana (THC) Screen Blood Type A POSITIVE Antibody Screen 08/13/19 08/13/19 05:49 06:26 WBC 6.5 RBC 3.70 L Hgb 11.9 Hct 35.0 L MCV 94.4 MCH 32.1 MCHC 34.0 RDW 14.7 Plt Count 268 MPV 7.2 L Absolute Neuts (auto) 2.5 Neutrophils % 38.4 L D Lymphocytes % 49.4 H D Monocytes % 9.0 Eosinophils % 1.7 Basophils % 1.5 D Nucleated RBC % 0 PT with INR INR Sodium Potassium Chloride Carbon Dioxide Anion Gap BUN Creatinine Est GFR (CKD-EPI)AfAm Est GFR (CKD-EPI)NonAf POC Glucometer 87 Random Glucose Hemoglobin A1c % Calcium Phosphorus Magnesium Total Bilirubin AST ALT Alkaline Phosphatase Creatine Kinase Creatine Kinase Index CK-MB (CK-2) Troponin I Total Protein Albumin Triglycerides Cholesterol Total LDL Cholesterol HDL Cholesterol Urine Color Urine Appearance Urine pH Ur Specific Mck[place] Urine Protein Urine Glucose (UA) Urine Ketones Urine Blood Urine Nitrite Urine Bilirubin Urine Urobilinogen Ur Leukocyte Esterase Opiates Screen Methadone Screen Barbiturate Screen Phencyclidine Screen Ur Amphetamines Screen MDMA (Ecstasy) Screen Benzodiazepines Screen Cocaine Screen U Marijuana (THC) Screen Blood Type Antibody Screen HOSPITAL COURSE: Date of Admission:08/13/19 Date of Discharge: 08/13/19 <Rio Lizama - Last Filed: 08/13/19 09:56> Physical Exam: SUBJECTIVE: Patient seen and examined OBJECTIVE: Vital Signs Period Temp Pulse Resp BP Sys/Borjas Pulse Ox Last 24 Hr 98.5 F-98.8 F 56-93 16-18 130-176/64-95 95-98 PHYSICAL EXAM GENERAL: The patient is awake, alert, and fully oriented, in no acute distress. HEAD: Normal with no signs of trauma. EYES: PERRL, extraocular movements intact, sclera anicteric, conjunctiva clear. ENT: Ears normal, nares patent, oropharynx clear without exudates, moist mucous membranes. NECK: Trachea midline, full range of motion, supple. LUNGS: Breath sounds equal, clear to auscultation bilaterally, no wheezes, no crackles, no accessory muscle use. HEART: Regular rate and rhythm, S1, S2 without murmur, rub or gallop. ABDOMEN: Soft, nontender, nondistended, normoactive bowel sounds, no guarding, no rebound, no hepatosplenomegaly, no masses. EXTREMITIES: 2+ pulses, warm, well-perfused, no edema. NEUROLOGICAL: Cranial nerves II through XII grossly intact. Normal speech, gait not observed. PSYCH: Normal mood, normal affect. SKIN: Warm, dry, normal turgor, no rashes or lesions noted. LABS Laboratory Results - last 24 hr 08/12/19 08/12/19 08/12/19 21:30 21:30 21:30 WBC 6.6 RBC 4.16 Hgb 13.1 Hct 39.3 MCV 94.5 MCH 31.5 MCHC 33.4 RDW 14.6 Plt Count 307 MPV 7.3 L D Absolute Neuts (auto) 3.6 Neutrophils % 54.6 D Lymphocytes % 35.0 D Monocytes % 8.6 Eosinophils % 1.2 Basophils % 0.6 Nucleated RBC % 0 PT with INR INR Sodium 141 Potassium 3.4 L Chloride 104 Carbon Dioxide 29 Anion Gap 8 BUN 12.1 Creatinine 1.1 Est GFR (CKD-EPI)AfAm 90.88 Est GFR (CKD-EPI)NonAf 78.41 POC Glucometer Random Glucose 154 H Hemoglobin A1c % Calcium 9.1 Phosphorus Magnesium Total Bilirubin 0.3 AST 14 L ALT 18 Alkaline Phosphatase 87 Creatine Kinase 312 H Creatine Kinase Index 0.8 CK-MB (CK-2) 2.5 Troponin I < 0.02 Total Protein 7.3 Albumin 4.1 Triglycerides Cholesterol Total LDL Cholesterol HDL Cholesterol Urine Color Urine Appearance Urine pH Ur Specific Mck[place] Urine Protein Urine Glucose (UA) Urine Ketones Urine Blood Urine Nitrite Urine Bilirubin Urine Urobilinogen Ur Leukocyte Esterase Opiates Screen Negative Methadone Screen Negative Barbiturate Screen Negative Phencyclidine Screen Positive A* Ur Amphetamines Screen Negative MDMA (Ecstasy) Screen Negative Benzodiazepines Screen Negative Cocaine Screen Negative U Marijuana (THC) Screen Positive A* Blood Type Antibody Screen 08/12/19 08/13/19 08/13/19 21:30 00:35 00:35 WBC 6.4 RBC 3.85 L Hgb 12.1 Hct 36.5 MCV 94.8 MCH 31.4 MCHC 33.2 RDW 14.6 Plt Count 283 MPV 7.4 L Absolute Neuts (auto) 3.6 Neutrophils % 55.9 Lymphocytes % 34.7 Monocytes % 7.9 Eosinophils % 1.1 Basophils % 0.4 Nucleated RBC % 0 PT with INR INR Sodium Potassium Chloride Carbon Dioxide Anion Gap BUN Creatinine Est GFR (CKD-EPI)AfAm Est GFR (CKD-EPI)NonAf POC Glucometer Random Glucose Hemoglobin A1c % Calcium Phosphorus Magnesium Total Bilirubin AST ALT Alkaline Phosphatase Creatine Kinase 263 Creatine Kinase Index 0.8 CK-MB (CK-2) 2.3 Troponin I < 0.02 Total Protein Albumin Triglycerides 74 Cholesterol 142 Total LDL Cholesterol 75 HDL Cholesterol 51 Urine Color Yellow Urine Appearance Clear Urine pH 5.0 Ur Specific Mckinney 1.029 Urine Protein Trace Urine Glucose (UA) Negative Urine Ketones Trace H Urine Blood Negative Urine Nitrite Negative Urine Bilirubin Negative Urine Urobilinogen 1.0 Ur Leukocyte Esterase Negative Opiates Screen Methadone Screen Barbiturate Screen Phencyclidine Screen Ur Amphetamines Screen MDMA (Ecstasy) Screen Benzodiazepines Screen Cocaine Screen U Marijuana (THC) Screen Blood Type Antibody Screen 08/13/19 08/13/19 08/13/19 00:35 00:35 05:49 WBC RBC Hgb Hct MCV MCH MCHC RDW Plt Count MPV Absolute Neuts (auto) Neutrophils % Lymphocytes % Monocytes % Eosinophils % Basophils % Nucleated RBC % PT with INR 12.70 INR 1.08 Sodium Potassium Chloride Carbon Dioxide Anion Gap BUN Creatinine Est GFR (CKD-EPI)AfAm Est GFR (CKD-EPI)NonAf POC Glucometer Random Glucose Hemoglobin A1c % Calcium Phosphorus Magnesium Total Bilirubin AST ALT Alkaline Phosphatase Creatine Kinase Creatine Kinase Index CK-MB (CK-2) Troponin I < 0.02 Total Protein Albumin Triglycerides Cholesterol Total LDL Cholesterol HDL Cholesterol Urine Color Urine Appearance Urine pH Ur Specific Mck[place] Urine Protein Urine Glucose (UA) Urine Ketones Urine Blood Urine Nitrite Urine Bilirubin Urine Urobilinogen Ur Leukocyte Esterase Opiates Screen Methadone Screen Barbiturate Screen Phencyclidine Screen Ur Amphetamines Screen MDMA (Ecstasy) Screen Benzodiazepines Screen Cocaine Screen U Marijuana (THC) Screen Blood Type A POSITIVE Antibody Screen Negative 08/13/19 08/13/19 08/13/19 05:49 05:49 05:49 WBC RBC Hgb Hct MCV MCH MCHC RDW Plt Count MPV Absolute Neuts (auto) Neutrophils % Lymphocytes % Monocytes % Eosinophils % Basophils % Nucleated RBC % PT with INR INR Sodium 146 H Potassium 3.4 L Chloride 111 H Carbon Dioxide 29 Anion Gap 6 L BUN 10.9 Creatinine 0.8 Est GFR (CKD-EPI)AfAm 121.57 Est GFR (CKD-EPI)NonAf 104.89 POC Glucometer Random Glucose 91 Hemoglobin A1c % 5.8 Calcium 8.2 L Phosphorus 3.0 Magnesium 1.9 Total Bilirubin 0.2 AST 11 L ALT 15 Alkaline Phosphatase 70 Creatine Kinase Creatine Kinase Index CK-MB (CK-2) Troponin I Total Protein 5.9 L Albumin 3.2 L Triglycerides Cholesterol Total LDL Cholesterol HDL Cholesterol Urine Color Urine Appearance Urine pH Ur Specific M[place] Urine Protein Urine Glucose (UA) Urine Ketones Urine Blood Urine Nitrite Urine Bilirubin Urine Urobilinogen Ur Leukocyte Esterase Opiates Screen Methadone Screen Barbiturate Screen Phencyclidine Screen Ur Amphetamines Screen MDMA (Ecstasy) Screen Benzodiazepines Screen Cocaine Screen U Marijuana (THC) Screen Blood Type A POSITIVE Antibody Screen 08/13/19 08/13/19 05:49 06:26 WBC 6.5 RBC 3.70 L Hgb 11.9 Hct 35.0 L MCV 94.4 MCH 32.1 MCHC 34.0 RDW 14.7 Plt Count 268 MPV 7.2 L Absolute Neuts (auto) 2.5 Neutrophils % 38.4 L D Lymphocytes % 49.4 H D Monocytes % 9.0 Eosinophils % 1.7 Basophils % 1.5 D Nucleated RBC % 0 PT with INR INR Sodium Potassium Chloride Carbon Dioxide Anion Gap BUN Creatinine Est GFR (CKD-EPI)AfAm Est GFR (CKD-EPI)NonAf POC Glucometer 87 Random Glucose Hemoglobin A1c % Calcium Phosphorus Magnesium Total Bilirubin AST ALT Alkaline Phosphatase Creatine Kinase Creatine Kinase Index CK-MB (CK-2) Troponin I Total Protein Albumin Triglycerides Cholesterol Total LDL Cholesterol HDL Cholesterol Urine Color Urine Appearance Urine pH Ur Specific Mck[place] Urine Protein Urine Glucose (UA) Urine Ketones Urine Blood Urine Nitrite Urine Bilirubin Urine Urobilinogen Ur Leukocyte Esterase Opiates Screen Methadone Screen Barbiturate Screen Phencyclidine Screen Ur Amphetamines Screen MDMA (Ecstasy) Screen Benzodiazepines Screen Cocaine Screen U Marijuana (THC) Screen Blood Type Antibody Screen HOSPITAL COURSE: Date of Admission:08/13/19 Date of Discharge: 08/13/19 Minutes to complete discharge: 33 <Wali Calvin - Last Filed: 08/13/19 11:08> Discharge Summary Problems reviewed: Yes Reason For Visit: CEREBROVASCULAR ACCIDENT (CVA) Current Active Problems Cerebral vascular accident (Acute) - Home Medications Comprehensive Discharge Medication List: Ambulatory Orders Amlodipine Besylate/Benazepril [Lotrel 5-40 mg Capsule] 1 each PO DAILY Aspirin Coated [Ecotrin -] 81 mg PO DAILY tablet.ec 08/13/19 Gabapentin 600 mg PO DAILY 08/13/19 Nicotine Patch [Nicoderm Patch -] 7 mg TD DAILY patch 08/13/19 Simvastatin 40 mg PO HS 08/13/19 <Rio Lizama - Last Filed: 08/13/19 09:56> Problems reviewed: Yes Current Active Problems Cerebral vascular accident (Acute) - Home Medications Comprehensive Discharge Medication List: Ambulatory Orders Amlodipine Besylate/Benazepril [Lotrel 5-40 mg Capsule] 1 each PO DAILY Aspirin Coated [Ecotrin -] 81 mg PO DAILY tablet.ec 08/13/19 Gabapentin 600 mg PO DAILY 08/13/19 Nicotine Patch [Nicoderm Patch -] 7 mg TD DAILY patch 08/13/19 Simvastatin 40 mg PO HS 08/13/19 <Wali Calvin - Last Filed: 08/13/19 11:08> Condition: Stable - Instructions Diet, Activity, Other Instructions: You were seen in the hospital for suspected worsening of your left facial droop. Your symptoms have resolved. You will be referred to: -Primary Care 3-5 days -Neurology (Dr. Smiley): 1-2 weeks -Detox (You are encouraged to go to [facility] and check if they have availability) -Psychiatry (Dr. Leal): 2-3 weeks You are encouraged to stop using drugs and to start taking your medications as directed You had a CT of your head done which was negative Referrals: Navin Dc MD [Staff Physician] - (Pulmonary function tests) Jie Leal MD [Staff Physician] - Victor M Barrera MD [Primary Care Provider] - 1 Week Anupam Smiley MD [Staff Physician] - 1 Week Mecca Alcaraz DO [Staff Physician] - Disposition: HOME This patient is new to me today: No Emergency Visit: Yes ED Registration Date: 08/13/19 Care time: The patient presented to the Emergency Department on the above date and was hospitalized for further evaluation of their emergent condition. Critical Care patient: No - Discharge Referral Referred to [facility] Yes Physician Referral: Osmar Alvarez MD (Int Med) <Wali Calvin - Last Filed: 08/13/19 11:08> ATTENDING PHYSICIAN STATEMENT I saw and evaluated the patient. I reviewed the resident's note and discussed the case with the resident. I agree with the resident's findings and plan as documented. SUBJECTIVE: OBJECTIVE: ASSESSMENT AND PLAN: <Rio Lizama - Last Filed: 08/13/19 09:56> Seen and examined; please see resident note for further historical information. I personally verified all maldonado historical information and exam findings. Personally interpreted all imaging and diagnostics and reviewed appropriate consults. I reviewed all labs and vital signs as per resident note and EMR as documented. I agree with the above assessment and plan unless supplemented by myself in the following. Seen and examined in the emergency room. Patient states he has complete resolution of the symptoms. He looked at a photograph of himself taken in the emergency room and stated that his face looks normal with a chronic left facial droop that has been unchanged for years. He has no persisting weakness, aside from the pre-existing symptoms he would have no findings on his NIH scale. He is awake alert and oriented x3 and able to have a full conversation. He wishes to go home and currently indicates that he is stable for discharge. He declined inpatient rehab stay but is interested in following up as needed. We will communicate to social work the need for a list of outpatient facilities. Furthermore, the patient will be monitored in the resident primary care clinic and he did receive a referral. He will be discharged on his home aspirin and statin. His symptoms were likely secondary to PCP and marijuana intoxication, he alludes that he may have done it slightly closer to the time of admission then documented on the history and physical but is not ultra forthcoming. Overall, he will be discharged home with indicated follow-up. I agree with the problem list as indicated. No changes to home medications. He is hemodynamically stable and afebrile. We discussed the case with neurology who agreed with discharge on repeat head CT. Repeat head CT was negative for any acute findings and he was discharged home <Wali Calvin - Last Filed: 08/13/19 11:08>
[2019-08-13] MEDS ORDERED: ASPIRIN COATED 81 MG TABLET.EC PO SCH (10:00)
[2019-08-13] MEDS ORDERED: NICOTINE 7 MG/24 HOURS TOPICAL PATCH TD SCH (10:00)
[2019-08-13 10:27] VITALS: BP 142/90; PULSE 56
--- NOTE | 2019-08-13 12:09 | EKG ---
Test Reason : Blood Pressure : / mmHG Vent. Rate : 089 BPM Atrial Rate : 089 BPM P-R Int : 152 ms QRS Dur : 082 ms QT Int : 326 ms P-R-T Axes : 055 075 040 degrees QTc Int : 396 ms NORMAL SINUS RHYTHM POSSIBLE LEFT ATRIAL ENLARGEMENT NONSPECIFIC T WAVE ABNORMALITY ABNORMAL ECG WHEN COMPARED WITH ECG OF 01-NOV-2018 11:39, VENT. RATE HAS INCREASED BY 48 BPM NONSPECIFIC T WAVE ABNORMALITY NOW EVIDENT IN INFERIOR LEADS NONSPECIFIC T WAVE ABNORMALITY NOW EVIDENT IN LATERAL LEADS Confirmed by Home Osorio MD ([id number]) on 08/13/2019 12:08:56 PM Referred By: Confirmed By:Home Osorio MD
[2019-08-13] MEDS ORDERED: ATORVASTATIN CA 20 MG TABLET (FP) PO SCH (22:00)
== END 2019-08-13 11:45 | disposition home or self-care (01) | DRG 812 ==
LOC: JER 21:10 → JERBED 08-13 01:12
PROVIDERS: ADMIT Internal Medicine; ATTEND Internal Medicine
DX: T40.991A Poisoning by other psychodysleptics [hallucinogens], accidental (unintentional), initial encounter (principal); T40.7X1A Poisoning by cannabis (derivatives), accidental (unintentional), initial encounter; R42 Dizziness and giddiness; I10 Essential (primary) hypertension; G51.0 Bell's palsy; E78.5 Hyperlipidemia, unspecified; R07.89 Other chest pain; F16.10 Hallucinogen abuse, uncomplicated; Z86.73 Personal history of transient ischemic attack (TIA), and cerebral infarction without residual deficits
CPT/HCPCS: 36415; 70450-TC; 71046-TC-FY; 80053; 80061; 80307; 81003; 82550; 82553; 82962; 83036; 83721; 83735; 84100; 84484; 85025; 85610; 86803; 86850; 86900; 86901; 87086; 93005; 93010; 99285-25; J1644; J7030

== ENCOUNTER 2019-11-21 19:15 | Emergency (ER) | payer OTHER ==
[2019-11-21] MEDS ORDERED: ONDANSETRON 4 MG/2 ML VIAL IVPUSH ONE ×2 (19:35→22:01)
[2019-11-21] MEDS ORDERED: FAMOTIDINE 20 MG/50 ML IVPB 20 MG/50 ML MG IVPB ONE ×2 (19:35→21:51)
[2019-11-21] MEDS ORDERED: SODIUM CHLORIDE 1,000 ML IV STA (19:35)
--- NOTE | 2019-11-21 19:35 | PDOC ---
Rapid Medical Evaluation Time Seen by Provider: 11/21/19 19:30 Medical Evaluation: Allergies Allergy/AdvReac Type Severity Reaction Status Date / Time No Known Allergies Allergy Verified 08/12/19 21:13 11/21/19 19:32 CC: stomach pain Pt is a 48 y/o male who presents to the ED with complaint of mid abdominal pain that started today. He admits to nausea without vomiting. + diarrhea. No urinary symptoms. Brief exam: Non-toxic appearing, diffuse mid abdominal tenderness to palpation, no rigidity Orders: labs, saline lock, fluids, zofran, pepcid To ED for further evaluation Discharge Disposition - Diagnosis Abdominal pain - Referrals - Patient Instructions - Post Discharge Activity
[2019-11-21 19:43] VITALS: TEMP 98.1; BMI 26.6
--- NOTE | 2019-11-21 19:53 | PDOC ---
History of Present Illness - General Chief Complaint: Diarrhea Stated Complaint: NAUSEA Time Seen by Provider: 11/21/19 19:30 - History of Present Illness Initial Comments: 11/21/19 19:52 HPI: 48 y/o M with hx of HTN, HLD, TIA, [place] palsy presenting with abdominal pain that started this afternoon associated with nausea and diarrhea. Patient had ham and cheese bagel for lunch around 1 pm. A couple hours after, he noted epigastric abdominal pain without radiation. Pain is 10/10 and described as a tightness in his belly with "bubbling." Pain is intermittent. He did not try anything for the pain. Also reports nausea but no emesis. He also reports 3-4 episodes of watery diarrhea. Reports chills, but no fevers. Denies chest pain, SOB, sick contacts, dysuria, myalgias. PMHx: as noted above ROS: as noted SHx: +tobacco use; no alcohol use; MJ daily Allergies: NKDA ROS: GENERAL/CONSTITUTIONAL: No fever; +chills. No weakness. HEAD, EYES, EARS, NOSE AND THROAT: No change in vision. No ear pain or discharge. No sore throat. CARDIOVASCULAR: No chest pain or shortness of breath RESPIRATORY: No cough, wheezing, or hemoptysis. GASTROINTESTINAL: +nausea; no vomiting, diarrhea or constipation. GENITOURINARY: No dysuria, frequency, or change in urination. MUSCULOSKELETAL: No joint or muscle swelling or pain. No neck or back pain. SKIN: No rash NEUROLOGIC: No headache, vertigo, loss of consciousness, or change in strength/ sensation. ENDOCRINE: No increased thirst. No abnormal weight change HEMATOLOGIC/LYMPHATIC: No anemia, easy bleeding, or history of blood clots. ALLERGIC/IMMUNOLOGIC: No hives or skin allergy. PE: GENERAL: Awake, alert, and fully oriented, no acute distress HEAD: No signs of trauma, normocephalic, atraumatic EYES: EOMI, sclera anicteric, conjunctiva clear ENT: Auricles normal inspection, hearing grossly normal, nares patent, oropharynx clear without exudates. Moist mucosa NECK: Normal ROM, no lymphadenopathy LUNGS: No increased work of breathing, symmetrical chest rise, clear to auscultation bilaterally, no wheezes, crackles or rhonchi HEART: Regular rate, regular rhythm, normal S1 and S2, no murmur, peripheral pulses 2+ and equal bilaterally. ABDOMEN: Soft, nondistended, tender to palpation in epigastric and supraumbilical region, negative Vesta, negative McBurneys, negative Rosvings normoactive bowel sounds. No guarding, no rebound. No masses. No CVAT MUSCULOSKELETAL: FROM NEUROLOGICAL: Cranial nerves II through XII grossly intact. Normal speech, normal gait, no focal sensorimotor deficits SKIN: Warm, Dry, normal turgor, no rashes or lesions noted Past History - Past Medical History Allergies/Adverse Reactions: Allergies Allergy/AdvReac Type Severity Reaction Status Date / Time No Known Allergies Allergy Verified 11/21/19 19:32 Home Medications: Ambulatory Orders Amlodipine Besylate/Benazepril [Lotrel 5-40 mg Capsule] 1 each PO DAILY Aspirin Coated [Ecotrin -] 81 mg PO DAILY tablet.ec 08/13/19 Gabapentin 600 mg PO DAILY 08/13/19 Nicotine Patch [Nicoderm Patch -] 7 mg TD DAILY patch 08/13/19 Simvastatin 40 mg PO HS 08/13/19 COPD: No CHF: No HTN: Yes Hypercholesterolemia: Yes - Immunization History Immunization Up to Date: Yes - Psycho Social/Smoking Cessation Hx Smoking History: Current every day smoker Number of Cigarettes Smoked Daily: 10 Information on smoking cessation initiated: No Hx Alcohol Use: No Drug/Substance Use Hx: Yes (MARIJUANA) *Physical Exam - Vital Signs Last Vital Signs Temp Pulse Resp BP Pulse Ox 98.1 F 70 17 186/90 H 100 11/21/19 19:32 11/21/19 19:32 11/21/19 19:32 11/21/19 19:32 11/21/19 19:32 ED Treatment Course - LABORATORY CBC & Chemistry Diagram: 11/21/19 22:20 11/21/19 22:20 Medical Decision Making - Medical Decision Making 11/21/19 22:30 48 y/o M with hx of HTN, HLD, TIA, [place] palsy presenting with abdominal pain that started this afternoon associated with nausea and diarrhea. VSS, AF. PE with epigastric abd ttp. DDx includes atypical ACS, gastritis, GERD, GB path, gastroenteritis, mesenteric ischemia -cbc, cmp, lipase, cardiac prof, coags, lipase, mg, ua, ekg -ivf, ofirmev, pepcid, maalox, zofran 11/21/19 22:35 POCUS US for GB: no gallstone, no pericholecystic fluid, no GB wall thickening, no CBD dilation; GB wall 2.38mm, CBD 2.44mm; negative sonographic Robles's sign 11/22/19 00:07 patient symptoms resolved following interventions discussed lab results and patient is comfortable going home with PCP followup all questions answered at this time Discharge - Discharge Information Problems reviewed: Yes Clinical Impression/Diagnosis: Abdominal pain Qualifiers: Abdominal location: epigastric Qualified Code(s): R10.13 - Epigastric pain Condition: Improved Disposition: HOME - Follow up/Referral Referrals: Victor M Barrera MD [Primary Care Provider] - Kerwin Borrero MD [Staff Physician] - - Patient Discharge Instructions Patient Printed Discharge Instructions: DI for Gastritis Additional Instructions: Additional Instructions: Please return to the emergency department with any new or worsening symptoms or concerns. Please follow up with your primary care physician within 3-7 days for re- evaluation. Please avoid spicy food, high in fats, fried foods. We sent Pepcid to your pharmacy; please take once a day for 14 days. Please also followup with a swager operator for further re-evaluation. We have attached a referral in your paperwork - Post Discharge Activity
[2019-11-21] MEDS ORDERED: MAG HYDROX/AL HYDROX/SIMETH 30 ML UNIT-DOSE CUP PO ONE (20:03)
[2019-11-21] MEDS ORDERED: ACETAMINOPHEN 1000 MG/100 ML VIAL (NON FORMULARY) IVPB ONE (20:09)
--- NOTE | 2019-11-21 20:55 | PDOC ---
Documentation entered by Juvenal Rosenthal SCRIBE, acting as scribe for Peggy Mcintyre DO. Peggy Mcintyre DO: This documentation has been prepared by the Galo tran Daniel, SCRIBE, under my direction and personally reviewed by me in its entirety. I confirm that the documentation accurately reflects all work, treatment, procedures, and medical decision making performed by me. Attending Attestation - Resident Resident Name: Juanis Sin - ED Attending Attestation I have performed the following: I have examined & evaluated the patient, The case was reviewed & discussed with the resident, I agree w/resident's findings & plan, Exceptions are as noted - HPI HPI: 11/21/19 20:12 The patient is a 48 year old male with a past medical history of HTN, HLD, TIA, and [place] Palsy here today for evaluation of abdominal pain. The patient reports that he ate a ham, egg, and cheese sandwich around 1 PM today and a few hours later he developed abdominal pain. He describes the pain as squeezing and umbilical with associated nausea, chills, and 3-4 episodes of diarrhea. Patient denies headache, lightheadedness. Denies fever. Denies chest pain, shortness of breath. Denies vomiting, diarrhea. Allergies: NKA Social history: Admits to daily marijuana use. PCP: Victor M Barrera - Physicial Exam PE: 11/21/19 20:12 Constitutional: Awake, alert, oriented. No acute distress. Head: Normocephalic. Atraumatic Eyes: PERRL. EOMI. Conjunctivae are not pale. ENT: Mucous membranes are moist and intact. Posterior pharynx without exudates or erythema. Uvula midline. Neck: Supple. Full ROM. No lymphadenopathy. Cardiovascular: Regular rate. Regular rhythm. S1, S2 regular. Distal pulses are 2+ and symmetric. Pulmonary/Chest: No evidence of respiratory distress. Clear to auscultation bilaterally No wheezing, rales or rhonchi. Abdominal: +left and right upper quadrant abdominal pain, maximal around the umbilicus. Soft and non-distended. No rebound, guarding or rigidity. No organomegaly. No palpable masses. Good bowel sounds. Back: No CVA tenderness. Musculoskeletal: No edema. No cyanosis. No clubbing. Full range of motion in all extremities. No calf tenderness. Radial/pedal pulses are intact and 2+ bilaterally Skin: Skin is warm and dry. No petechiae. No purpura. Neurological: Alert and oriented to person, place, and time. Cranial nerves II -XII are grossly intact. Normal speech. Strength is grossly symmetric. No sensory deficits. Psychiatric: Good eye contact. Normal interaction, affect and behavior. - Medical Decision Making 11/21/19 20:47 I, Dr. Peggy Mcintyre, DO, attest that this document has been prepared under my direction and personally reviewed by me in its entirety. I further attest, that it accurately reflects all work, treatment, procedures and medical decision -making performed by me. a/p: 48yo male with epigastric/upper abd pain today after eating a bagel sandwich with ham earlier today -pt with ttp epigastric and supraumbilical ttp -no rlq or llq ttp -nausea and diarrhea -no vomiting, but belching -will send labs, ekg, lipase -will hydrate, zofran, pepcid, tylenol -will monitor and reassess 11/21/19 23:25 labs reviewed without acute findings 11/22/19 00:04 pt states pain resolved feels better was sleeping stable for dc to home
[2019-11-21] MEDS ORDERED: ONDANSETRON 4 MG/2 ML VIAL ONE ×2 (21:51→22:45)
[2019-11-21] MEDS ORDERED: ACETAMINOPHEN INJECTION 100 ML IVPB ONE (21:51)
[2019-11-21] MEDS ORDERED: MAG HYDROX/AL HYDROX/SIMETH 30 ML UNIT-DOSE CUP ONE (21:51)
[2019-11-21 22:43] LABS: BASO % 1.2 % (0-2.0); EOS % 0.6 % (0-4.5); HEMATOCRIT 41.7 % (35.4-49); LYMPH % 19.5 % (8-40); MCH 31.4 pg (25.7-33.7); MCHC 33.7 g/dl (32.0-35.9); MEAN CELL VOLUME 93.3 fl (80-96); MEAN PLT VOLUME 7.6 fl (7.5-11.1); MONO % 3.2 % (3.8-10.2); NEUT % 75.5 % (42.8-82.8); PLATELET COUNT 299 K/MM3 (134-434); RBC 4.48 M/mm3 (4.00-5.60); RDW 14.7 % (11.9-15.9); WHITE BLOOD COUNT 10.4 K/mm3 (4.0-10.0)
[2019-11-21 22:54] LABS: MAGNESIUM 2.1 mg/dL (1.8-2.4)
[2019-11-21 22:58] LABS: INR 1.03 (0.83-1.09); PROTHROMBIN TIME (PATIENT) 12.2 SEC (9.7-13.0)
[2019-11-21 23:01] LABS: ACTIVATED PTT 32.4 SECONDS (25.2-36.5)
[2019-11-21 23:03] LABS: ALBUMIN 4.2 g/dl (3.4-5.0); ALK PHOS 96 U/L (45-117); ANION GAP 8 MMOL/L (8-16); BILIRUBIN,TOTAL 0.3 mg/dL (0.2-1); BLOOD UREA NITROGEN 11.6 mg/dL (7-18); CALCIUM 9.2 mg/dL (8.5-10.1); CHLORIDE 103 mmol/L (98-107); CO2 30 mmol/L (21-32); CREATININE 0.8 mg/dL (0.55-1.3); GLUCOSE,RANDOM 92 mg/dL (74-106); POTASSIUM 3.5 mmol/L (3.5-5.1); SGOT/AST 16 U/L (15-37); SGPT/ALT 22 U/L (13-61); SODIUM 140 mmol/L (136-145); TOT PROT 7.7 g/dl (6.4-8.2)
[2019-11-22 01:22] VITALS: BP 139/74; PULSE 57
--- NOTE | 2019-11-22 15:04 | EKG ---
Test Reason : Blood Pressure : / mmHG Vent. Rate : 062 BPM Atrial Rate : 062 BPM P-R Int : 158 ms QRS Dur : 086 ms QT Int : 384 ms P-R-T Axes : 059 070 073 degrees QTc Int : 389 ms NORMAL SINUS RHYTHM NONSPECIFIC T WAVE CHANGES WHEN COMPARED WITH ECG OF 12-AUG-2019 21:10, NONSPECIFIC T WAVE ABNORMALITY NO LONGER EVIDENT IN INFERIOR LEADS Confirmed by SOLO ODOM MD ([id number]) on 11/22/2019 3:03:41 PM Referred By: Confirmed By:SOLO ODOM MD
== END 2019-11-22 01:00 | disposition home or self-care (01) ==
LOC: JER 19:15
PROC: 3E033GC Introduction of Other Therapeutic Substance into Peripheral Vein, Percutaneous Approach (ICD-10-PCS; principal; 2019-11-21)
PROC: 3E033NZ Introduction of Analgesics, Hypnotics, Sedatives into Peripheral Vein, Percutaneous Approach (ICD-10-PCS; 2019-11-21)
PROC: 3E033GC Introduction of Other Therapeutic Substance into Peripheral Vein, Percutaneous Approach (ICD-10-PCS; 2019-11-21)
DX: R10.13 Epigastric pain (principal); I10 Essential (primary) hypertension; F17.210 Nicotine dependence, cigarettes, uncomplicated; E78.00 Pure hypercholesterolemia, unspecified; Z86.73 Personal history of transient ischemic attack (TIA), and cerebral infarction without residual deficits; Z86.69 Personal history of other diseases of the nervous system and sense organs
CPT/HCPCS: 36415; 76705-TC; 80053; 82550; 82553; 83605; 83690; 83735; 84484; 85025; 85610; 85730; 93005; 93010; 99284-25; J0131; J7030

== ENCOUNTER 2021-11-27 19:15 | Emergency (ER) | payer OTHER ==
[2021-11-27 19:20] VITALS: BP 150/83; PULSE 74; TEMP 97.3; BMI 27.3
[2021-11-27] MEDS ORDERED: IBUPROFEN 600 MG TABLET (FP) PO ONE ×2 (21:01→21:48)
[2021-11-27 21:26] LABS: PH,URINE 5.5 (5.0-8.0); URINE APPEARANCE CLEAR; URINE BILIRUBIN NEGATIVE (NEGATIVE); URINE COLOR YELLOW; URINE GLUCOSE (UA) NEGATIVE (NEGATIVE); URINE KETONE TRACE (NEGATIVE); URINE LEUK ESTERASE NEGATIVE (NEGATIVE); URINE NITRITE NEGATIVE (NEGATIVE); URINE PROTEIN NEGATIVE (NEGATIVE)
[2021-11-27 22:17] LABS: SYPHILIS W/ RPR CONF NON-REACTIVE (NONREACTIVE)
[2021-11-27 22:45] LABS: HIV INTERPRETATION NEGATIVE (NEGATIVE)
[2021-11-27] MEDS ORDERED: ACETAMINOPHEN 500 MG TABLET (FP) PO ONE (22:52)
[2021-11-27] MEDS ORDERED: ACETAMINOPHEN 325 MG TABLET (FP) ONE (22:59)
[2021-11-27] MEDS ORDERED: LIDOCAINE HCL/PF 1% SDV 5ML VIAL ONE (22:59)
== END 2021-11-27 23:19 | disposition home or self-care (01) ==
LOC: JER 19:15
DX: L72.3 Sebaceous cyst (principal); N45.3 Epididymo-orchitis
CPT/HCPCS: 36415; 76870-TC; 81003; 86780; 87086; 87389; 87491; 87591; 99284-25